=== PATIENT | female | born 1940 | race Caucasian/White ===

== ENCOUNTER 2017-01-23 17:06 | Emergency (ER) | payer MEDICARE, BC ==
[2017-01-23 18:56] LABS: Appearance,Urine Cloudy (Clear); Bacteria,Urine Few /hpf; Bilirubin,Urine Negative (Negative); Glucose,Urine (UA) Negative (Negative); Ketones,Urine Negative (Negative); Leukocyte Esterase,Urine Large (Negative); Mucus,Urine Rare /hpf; Nitrite,Urine Positive (Negative); Particle Count 11657; Protein,Urine 1+ (Negative); RBC,Urine 36 /hpf (0-5); Specific Gravity,Urine 1.016 (1.001-1.035); Squamous Epithelial Cell,Urine 3 /hpf (0-4); UA Billing (MACRO vs. MICRO) MICRO; Urobilinogen,Urine <2.0 mg/dL (<2.0); WBC,Urine 109 /hpf (0-5)
[2017-01-23] MEDS ORDERED: AMOXIC-POT CLAV 875-125MG 1 EACH TAB PO STA (20:23)
--- NOTE | 2017-01-23 20:36 | ED ---
General Adult HPI - General Chief complaint: Recheck/Abnormal Lab/Rx Stated complaint: Catheter Problem Time Seen by Provider: 01/23/17 18:10 Source: patient, RN notes reviewed Mode of arrival: ambulatory Limitations: no limitations - History of Present Illness Initial comments: Chief complaint and history of present illness is a 76-year-old female here with a complaint of catheter not working well. His been 3 weeks. The patient has a history of interstitial cystitis which over the years because the bladder to shrink consequently she had retro-flow into the kidneys which caused GFR problems. She has for the past 5 years had a Ibarra catheter to solve the problem. This particular catheter has stopped flowing. It was removed and 250 ML's of urine was removed. Patient denies fever chills or pain - Related Data Home Medications Medication Instructions Recorded Confirmed ALPRAZolam [Xanax] 0.5 mg PO DAILY 01/23/17 01/23/17 Calcium/Magnesium/Zinc 1 tab PO HS 01/23/17 01/23/17 [Jyxbvxj-Hjgflzhna-Cudu Tablet] Cholecalciferol [Vitamin D3] 4,000 unit PO HS 01/23/17 01/23/17 Citalopram Hydrobromide [CeleXA] 20 mg PO DAILY 01/23/17 01/23/17 Cyanocobalamin (Vitamin B-12) 2,500 mcg PO DAILY 01/23/17 01/23/17 [Vitamin B12] Hydrocodone/Acetaminophen [Cobb 1 tab PO DAILY PRN 01/23/17 01/23/17 10-325 Tablet] Krill Oil 500 mg PO HS 01/23/17 01/23/17 Multivit-Min36/Iron/Folic Acid 1 tab PO DAILY 01/23/17 01/23/17 [Geritol Complete Tablet] Ranitidine HCl [Zantac] 150 mg PO DAILY 01/23/17 01/23/17 Thyroid,Pork [Nature-Throid] 32.5 mg PO DAILY 01/23/17 01/23/17 Previous Rx's Medication Instructions Recorded Amoxicillin/Potassium Clav 1 each PO Q12HR #20 tab 01/23/17 [Augmentin 875-125 Tablet] Allergies Allergy/AdvReac Type Severity Reaction Status Date / Time No Known Allergies Allergy Verified 01/23/17 18:43 Review of Systems ROS Statement: Those systems with pertinent positive or pertinent negative responses have been documented in the HPI. review of systems no complaint of headache chest pain shortness breath GI/ problems no new problems. She has chronic problem with balance which she is followed byher family doctor and neurologist. All systems were reviewed past medical problems significant for interstitial cystitis, Indwelling Ibarra catheter for 5 years changes monthly as needed. Denies high blood pressure heart disease diabetes cancer stroke. 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 Other surgeries include bilateral hip replacements. Laminectomy as well. Total hysterectomy. Family history no cancers. Patient denies smoking denies drinking. ROS Other: All systems not noted in ROS Statement are negative. Past Medical History Additional Past Medical History / Comment(s): interstitial cystitis hydronephretis Past Surgical History: Joint Replacement, Orthopedic Surgery Additional Past Surgical History / Comment(s): hip surg back/laminectomy Past Psychological History: No Psychological Hx Reported Smoking Status: Never smoker Past Alcohol Use History: None Reported Past Drug Use History: None Reported General Exam - General Exam Comments Initial Comments: General: The patient is awake and alert, in no distress, and does not appear acutely ill. here because of possible urinary tract infection and nonfunctioning or plugged Ibarra catheter. Vital signs shows temperature 97.6 pulse 91 respiratory rate 18 pulse ox 94% room air blood pressure 102/64 Eye: Pupils are equal, round and reactive to light, extra-ocular movements are intact ; there is normal conjunctiva bilaterally. No signs of icterus. Ears, nose, mouth and throat: There are moist mucous membranes and no oral lesions. Neck: The neck is supple, there is no tenderness no anterior cervical lymphadenopathy , no carotid bruit. Cardiovascular: There is a regular rate and rhythm. faint systolic murmur appreciated. Respiratory: Lungs are clear to auscultation, respirations are non-labored, breath sounds are equal. No wheezes, stridor, rales, or rhonchi. Gastrointestinal: Soft, non-distended, non-tender abdomen without masses or organomegaly noted. There is no rebound or guarding present. No CVA tenderness. Bowel sounds are unremarkable.indwelling Ibarra catheter chronic. Back: no complaint of back pain. Musculoskeletal: Normal ROM, no tenderness, There is no pedal edema. There is no calf tenderness or swelling. Sensation intact. Pulses equal bilaterally 2+. Neurological: the only deficit is slight balance problem when she walks which is been a chronic problem her twin sister has the same issues. She has been to a neurologist but they describe it as a mechanical issue. Patient also has right facial muscle problems associated with the surgery for an acoustic neuroma years ago. Skin: Skin is warm and dry and no rashes or lesions are noted. Limitations: no limitations Course Vital Signs 01/23/17 17:09 Temperature 97.6 F Pulse Rate 91 Respiratory 18 Rate Blood Pressure 102/64 O2 Sat by Pulse 94 L Oximetry Medical Decision Making - Medical Decision Making medical decision-making. The patient's catheter was changed to a 50 ML's of urine was collected in the in the container. The patient be given a leg bag which she knows how to use. Urinalysis showed large leuk esterase positive nitrates 36 RBCs 109 WBCs. She states that the antibiotic that works best for her is Augmentin. She'll be started at here given prescription to take further on advised to get a repeat urine a week after she finishes this current prescription. Patient has no complaints otherwise is to follow-up with family physician - Lab Data Lab Results 01/23/17 Range/Units 18:44 Urine Color Yellow Urine Appearance Cloudy H (Clear) Urine pH 8.0 (5.0-8.0) Ur Specific [place] 1.016 (1.001-1.035) Urine Protein 1+ H (Negative) Urine Glucose (UA) Negative (Negative) Urine Ketones Negative (Negative) Urine Blood Negative (Negative) Urine Nitrite Positive H (Negative) Urine Bilirubin Negative (Negative) Urine Urobilinogen <2.0 (<2.0) mg/dL Ur Leukocyte Esterase Large H (Negative) Urine RBC 36 H (0-5) /hpf Urine WBC 109 H (0-5) /hpf Urine WBC Clumps Few H (None) /hpf Ur Squamous Epith Cells 3 (0-4) /hpf Urine Bacteria Few H (None) /hpf Urine Mucus Rare H (None) /hpf Urine Yeast (Budding) Few H (None) /hpf Disposition Clinical Impression: UTI (urinary tract infection), Ibarra catheter problem Disposition: HOME SELF-CARE Condition: Good Instructions: Urinary Tract Infection in Women (ED) Additional Instructions: Keep track of urine output. Take antibiotics as directed. Get urine rechecked a week after he finished antibiotics. Prescriptions: Amoxicillin/Potassium Clav [Augmentin 875-125 Tablet] 1 each PO Q12HR #20 tab Referrals: Nonstaff,Physician [Primary Care Provider] - 1-2 days Time of Disposition: 20:38
[2017-01-23 20:47] VITALS: BP 115/68; PULSE 76; RESP 16; TEMP 97
== END 2017-01-23 20:47 | disposition home or self-care (01) ==
LOC: EC 17:06
DX: T83.592A Infection and inflammatory reaction due to indwelling ureteral stent, initial encounter (principal); N39.0 Urinary tract infection, site not specified; Z79.899 Other long term (current) drug therapy
CPT/HCPCS: 51702; 81001; 87077; 87086; 87186; 99283